=== PATIENT | male | born 1945 | race Caucasian/White ===

== ENCOUNTER 2022-11-05 11:01 | Outpatient (REF) | payer MEDICARE, OTHER, SELFPAY ==
--- NOTE | ~2022-11-05 | XR_ITS ---
EXAMINATION: XR SHOULDER, LEFT CLINICAL INFORMATION: Pain COMPARISON: None available. TECHNIQUE: AP external rotation, Grashey, scapular Y, and axillary views of the left shoulder. FINDINGS: The bones and soft tissues are normal. No fracture. Glenohumeral and acromioclavicular alignment is anatomic with normal joint space. No abnormal soft tissue calcifications. XR/XR shoulder LT min 2V IMPRESSION: Normal left shoulder.
== END 2022-11-05 11:02 | disposition home or self-care (01) ==
LOC: HO.HMGCX 11:01
PROVIDERS: PCP Internal Medicine; Visit Provider Internal Medicine
DX: M25.512 Pain in left shoulder (principal)
CPT/HCPCS: 73030

== ENCOUNTER 2024-12-15 14:53 | Outpatient (AMB) | payer MEDICARE, OTHER, SELFPAY ==
--- NOTE | 2024-12-15 14:55 | A.OFFPC_ITS ---
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 Accompanied by: Self / Same As Patient Allergies amoxicillin (AMOXICILLIN) Allergy (Unknown, Verified 12/15/24 15:13) UNKNOWN Medication List - Last Reconciled 12/15/24 by Judith Bryant PA-C amlodipine 5 mg PO DAILY aspirin 81 mg PO DAILY atorvastatin (Lipitor) 40 mg PO DAILY levothyroxine 75 mcg PO DAILY Tobacco use date assessed: 12/15/24 Fall risk assessment: No Falls in past year Last assessed Fall Risk: 12/15/24 Dental Screening Dental Screen Date: 12/15/24 Did you have a dental visit in the last 12 months?: Yes Did you have a dental problem in the last 6 months where you did not have access to dental care?: No Was dental information given to patient?: Patient has dentist HPI establish care HPI Details The patient is a 79-year-old male presenting to establish a new primary care provider due to Dr. Collins arana who was his prior primary care along for a routine follow-up for chronic conditions management. The patient has a history of cerebrovascular accident (stroke) which occurred in 1996, treated at [facility]. He is currently on aspirin and atorvastatin for stroke prevention and hyperlipidemia management. The patient has a history of hypertension, managed with amlodipine, and denies any associated leg swelling. The patient also has hyperlipidemia, managed with atorvastatin. The patient has hypothyroidism, managed with levothyroxine. The patient reports regular exercise and feels healthy, with no need for assistance at home. Social History - Exercise: Reports regular physical act ivity and feels healthy. - Living Situation: Lives independently without need for assistance. [facility] Medical History Hypothyroidism Hyperlipidemia Hypertension History of CVA (cerebrovascular accident) Establishing care with new doctor, encounter for Family History Father No problems noted. Mother No problems noted. Social History Housing: Condominium Alcohol intake: current Alcohol intake frequency: does not drink Patient Tobacco Use Status: Former Tobacco user service: Yes Current occupational status: retired Cognitive needs: No Hearing needs: No Vision needs: Yes (rx glasses) Questionnaire PHQ-9 Over the last 2 weeks, how often have you been bothered by any of the following problems? 1. Little interest or pleasure in doing things: not at all 2. Feeling down, depressed, or hopeless: not at all 3. Trouble falling or staying asleep, or sleeping too much: not at all 4. Feeling tired or having little energy: not at all 5. Poor appetite or overeating: not at all 6. Feeling bad about yourself - or that you are a failure or have let yourself or your family down: not at all 7. Trouble concentrating on things, such as reading the newspaper or watching television: not at all 8. Moving or speaking so slowly that other people could have noticed. Or the opposite - being so fidgety or restless that you have been moving around a lot more than usual: not at all 9. Thoughts that you would be better off or of hurting yourself in some way: not at all Total score: 0 Depression Screening Interpretation: Negative Depression Screening Done: Yes 26625 - PHQ-9 Billing: Yes Source: Developed by Drs. Marcus Arredondo, Glendy Travis, Yossi Pedro and colleagues, with an educational sony from [employer]. Thrive Questionnaire Date Thrive assessed: 12/15/24 I am a: Patient What is your living situation today?: I have a steady place to live Within the past 12 months, did the food you bought not last and you didn't have the money to get more?: Never true Within the past 12 months, did you worry whether your food would run out before you got money to buy more?: Never true Do you have trouble paying for medicines?: No Do you have trouble getting transportation to medical appointments?: No Do you have trouble paying your heating and electricity bill?: No Do you have trouble taking care of your child, family member or friend?: No Do you have trouble with day-to-day activities such as bathing, preparing meals, shopping, managing finances, etc.?: No Are you currently unemployed and looking for a job?: No Are you interested in more education?: No Please select the resources that you would like help with: None Currently or been in a relationship where the following occur: No concerns reported THRIVE Score: 0 AUDIT C Alcohol Use Questionnaire (AUDIT-C) 1. How often do you have a drink containing alcohol?: Never 3. How often do you have six or more drinks on one occasion?: Never Total Score: 0 Score Reviewed/Action Taken: No LAURA-7 AMB Questionnaire LAURA-7 Date LAURA - 7 assessed: 12/15/24 Feeling nervous, anxious, or on edge: 0 = Not at all Not being able to stop or control worryin = Not at all Worrying too much about different things: 0 = Not at all Trouble relaxin = Not at all Being so restless that it is hard to sit still: 0 = Not at all Becoming easily annoyed or irritable: 0 = Not at all Feeling afraid as if something awful might happen: 0 = Not at all Total LAURA-7 score (0-4 normal; 5-9 mild; 10-14 moderate; 15-21 severe): 0 Source: Developed by Drs. Marcus Arredondo, Glendy Travis, Yossi Pedro and colleagues, with an educational sony from [employer]. LAURA-7 Assessment Billing LAURA-7 Assessment Tool: LAURA-7 Assessment 72568 Review of Systems Const Details: - Neurological: Denies falls, numbness, or weakness. - Cardiovascular: Denies chest pain. - Respiratory: Denies dyspnea. - Gastrointestinal: Denies black or bloody stools. Physical exam (Primary Care) Vital Signs: Last Vital Signs Temp 97.7 F 12/15/24 15:01 Pulse 67 12/15/24 15:01 Resp 16 12/15/24 15:01 BP 136/82 12/15/24 15:01 Pulse Ox 98 12/15/24 15:01 Oxygen Delivery Method Room Air 12/15/24 15:01 Care Plan Goal for BP management: <140/90 at Goal BMI result Body Mass Index 26.4 BMI Assessment/Plan discussion: High BMI High, discussed plan: lifestyle, weight reduction, dietary, physical activity and alcohol moderation Tobacco/Smoking Status: Tobacco use Status Tobacco use date assessed 12/15/24 12/15/24 15:00 Patient Tobacco Use Status Former Tobacco user 12/15/24 15:09 PHQ-9: PHQ-9 Score PHQ-9: Total score 0 12/15/24 15:00 Depression Screening Interpretation: Negative Thrive Assessment: Date of Thrive Assessment Date Thrive assessed 12/15/24 12/15/24 15:00 Currently or been in a relationship where the following occur: No concerns reported Const Other: Appearance: Alert. Oriented X3. No acute distress. Head: Normal external exam. Normocephalic. Atraumatic. Eyes: Pupils are equal, round, and reactive to light. Extraocular movements intact. Conjunctiva and sclera normal. Eyelids normal. Throat: Pharynx normal. Uvula midline. Moist mucous membranes. Neck: Normal inspection. Neck supple. Full range of motion. Cardiovascular: Normal heart rate and rhythm. Heart sound normal. No murmurs noted. Pulses normal throughout. Respiratory: No respiratory distress. Painless inspiration. Breath sounds normal. No wheezes/rales/rhonchi noted. Chest nontender. No accessory muscle usage noted or decreased air movement noted. Abdomen: Soft and nontender. No distention noted. No organomegaly noted. Back: Full range of motion noted. Skin: Skin warm and dry. Normal skin color. Normal skin turgor. No rashes/lesions/lacerations noted. Extremities: No lower extremity edema. Extremities exhibit normal range of motion. Extremities nontender. Neuro: Oriented X 3. No motor deficit. No sensory deficit. Reflexes normal. Results Reviewed Results Reviewed: - Labs: Blood work completed in October, including cholesterol, thyroid, and prostate checks. Coding Level of Care Code New Pt Level 4 (81669) Complex EM visit Add On G2211 Diagnoses Establishing care with new doctor, encounter for Z76.89 History of CVA (cerebrovascular accident) Z86.73 Hypertension I10 Hyperlipidemia E78.5 Hypothyroidism E03.9 Additional Codes PHQ-9 - 41687 - PHQ-9 Billing: Yes ([id number]) LAURA-7 Assessment Billing - LAURA-7 Assessment Tool: LAURA-7 Assessment 10478 ([id number]) Assessment & Plan Assessment & Plan (1) Establishing care with new doctor, encounter for: Code(s): Z76.89 - Persons encountering health services in other specified circumstances Category: Medical (2) History of CVA (cerebrovascular accident): Code(s): Z86.73 - Personal history of transient ischemic attack (TIA), and cerebral infarction without residual deficits Category: Medical Plan: The patient is on aspirin and atorvastatin for secondary prevention of stroke and management of hyperlipidemia. Follow-up is scheduled in six months to monitor the condition and adjust medications if necessary. (3) Hypertension: Code(s): I10 - Essential (primary) hypertension Category: Medical Plan: The patient is currently managed with amlodipine and denies any side effects such as leg swelling. Blood pressure monitoring and medication adherence will be reviewed at the next follow-up. (4) Hyperlipidemia: Code(s): E78.5 - Hyperlipidemia, unspecified Category: Medical Plan: The patient is on atorvastatin for lipid management. Lipid levels will be reassessed at the next follow-up to ensure therapeutic targets are met. (5) Hypothyroidism: Code(s): E03.9 - Hypothyroidism, unspecified Category: Medical Plan: The patient is on levothyroxine for thyroid hormone replacement. Thyroid function tests will be reviewed at the next follow-up to ensure adequate dosing. Plan Plan Patient was informed and verbally consented to the use of an ambient scribe for clinic note documentation during this visit. 1. Cerebrovascular Accident (Stroke) The patient is on aspirin and atorvastatin for secondary prevention of stroke and management of hyperlipidemia. Follow-up is scheduled in six months to monitor the condition and adjust medications if necessary. 2. Hypertension The patient is currently managed with amlodipine and denies any side effects such as leg swelling. Blood pressure monitoring and medication adherence will be reviewed at the next follow-up. 3. Hyperlipidemia The patient is on atorvastatin for lipid management. Lipid levels will be reassessed at the next follow-up to ensure therapeutic targets are met. 4. Hypothyroidism The patient is on levothyroxine for thyroid hormone replacement. Thyroid function tests will be reviewed at the next follow-up to ensure adequate dosing. During the visit, we discussed the patient's current medication regimen for stroke prevention, hypertension, hyperlipidemia, and hypothyroidism. I advised the patient to continue with the current medications and scheduled a follow-up in six months to reassess the conditions and adjust treatment as necessary. We also discussed the importance of regular blood work to monitor cholesterol and thyroid levels. The patient was informed about the availability of acute care services if needed. Patient Instructions: - Continue taking prescribed medications: aspirin, atorvastatin, amlodipine, and levothyroxine. - Schedule follow-up appointment in six months. - Contact the clinic for any acute issues such as falls, chest pain, or other concerns.
[2024-12-15 15:01] VITALS: BP 136/82; PULSE 67; RESP 16; TEMP 36.5; O2SAT 98; BMI 26.4
--- OUTSIDE RECORDS SUMMARY | 2024-12-15 15:20 | XMS_ITS | Clinical Summary ---
Author Organization [facility] Facility Address [address] [place] [id number] Care Team Providers Care Departmental Buyer Name Role Phone Arron Galvez MD Primary Care Provider + Allergies Active Allergy Reactions Criticality Noted Date Comments Amoxicillin Rash Low 12/24/2017 Medications levothyroxine (SYNTHROID, LEVOTHROID) 75 MCG tablet Take 75 mcg by mouth 1 (one) time each day 12/11/2022 Active amLODIPine (NORVASC) 2.5 MG tablet Take 2.5 mg by mouth 1 (one) time each day 12/09/2022 Active aspirin (ST STACIA) 81 MG EC tablet Take 81 mg by mouth in the morning. Active atorvastatin (LIPITOR) 80 MG tablet Take 80 mg by mouth 1 (one) time each day Active Active Problems Problem Noted Date Diagnosed Date Stage 3a chronic kidney disease 12/19/2022 Hypertension 02/22/2014 Chronic kidney disease stage 2 12/02/2011 Social History Tobacco Use Types Packs/Day Years Used Date Smoking Tobacco: Never Tobacco Cessation:Counseling Given: Not Answered Alcohol Use Standard Drinks/Week Comments Never 0 (1 standard drink = 0.6 oz pur e alcohol) Sex and Gender Information Value Date Recorded Sex Assigned at Not on file Legal Sex Male 5:21 PM EST Gender Identity Not on file Sexual Orientation Not on file Last Filed Vital Signs Vital Sign Reading Time Taken Comments Blood Pressure 120/80 09/02/2024 2:06 PM EDT Pulse 88 09/02/2024 2:06 PM EDT Temperature - - Respiratory Rate - - Oxygen Saturation 99% 09/02/2024 2:06 PM EDT Inhaled Oxygen Concentration - - Weight 86.9 kg (191 lb 9.6 oz) 12/22/2023 1:52 P M EDT Height - - Body Mass Index - - Plan of Treatment Upcoming Encounters Date Type Department Care Team (Late st Contact Info) Description 02/21/2025 3:00 PM EDT Office Visit [facility] [address] [place] [phone] Lacho Bryant MD [address] [facility] [address] [place] [phone] Health Maintenance Due Date Last Done Comments Pneumococcal Vaccine: 50+ Ye ars (1 of 2 - PCV) 1964 Influenza Vaccine (#1) 2025 Hepatitis B Vaccine Aged Out No longe r eligible based on patient's age to complete this topic Insurance Medicare [facility] Medicare [facility] Care Teams Departmental Buyer Relationship Specialty Start Date End Date Arron Galvez MD [address] , [address] [address] PCP - General 09/02/24
--- OUTSIDE RECORDS SUMMARY | 2024-12-15 15:21 | XMS_ITS | Patient Health Record ---
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
== END 2024-12-15 15:25 | disposition home or self-care (01) ==
LOC: HO.HMCSH 14:53
PROVIDERS: PCP Internal Medicine; Visit Provider Physician Assistant Medical
DX: Z76.89 Persons encountering health services in other specified circumstances (principal); Z86.73 Personal history of transient ischemic attack (TIA), and cerebral infarction without residual deficits; I10 Essential (primary) hypertension; E78.5 Hyperlipidemia, unspecified; E03.9 Hypothyroidism, unspecified

== ENCOUNTER → 2024-12-15 14:53 | Outpatient (BNVA) | payer MEDICARE, OTHER, SELFPAY | PROVIDERS: PCP Internal Medicine; Visit Provider Physician Assistant Medical | DX: Z76.89 Persons encountering health services in other specified circumstances (principal); Z86.73 Personal history of transient ischemic attack (TIA), and cerebral infarction without residual deficits; I10 Essential (primary) hypertension; E78.5 Hyperlipidemia, unspecified; E03.9 Hypothyroidism, unspecified | CPT/HCPCS: 96127; 99202 ==